=== PATIENT | female | born 1935 | race Caucasian/White ===

== ENCOUNTER → 2016-08-29 | Outpatient (CLI) | payer MEDICARE, BC ==
[2016-08-29 15:51] LABS: BICARBONATE 28.1 MEQ/L (21.0-32.0); POTASSIUM 4.2 MEQ/L (3.5-5.1)
== END ==
LOC: PLAB 11:46
PROVIDERS: ATTEND Family Medicine
DX: I10 Essential (primary) hypertension (principal)
CPT/HCPCS: 36415; 80048

== ENCOUNTER → 2017-07-23 | Outpatient (CLI) | payer MEDICARE, BC | LOC: PLAB 09:25 | PROVIDERS: ATTEND Nurse Practitioner Family | DX: M10.09 Idiopathic gout, multiple sites (principal) | CPT/HCPCS: 36415; 84550 ==